=== PATIENT | female | born 1990 | race Caucasian/White ===

== ENCOUNTER 2020-01-16 13:59 | Inpatient (IN) | payer BC ==
[2020-01-16] VITALS (24 sets, daily range): BP systolic 117–168; BP diastolic 58–90; PULSE 68–114; TEMP 97.6–98.4
[~2020-01-16] VITALS: Ht 165.1 cm; Wt 88.2 kg
--- NOTE | 2020-01-16 14:05 | NUR ---
1405- Pt. ambulatory to the floor. Orientated to room and changed into gown. Pt. reports GFM, no blood and states she has been leaking since around 1100, when she thinks her water broke. 1409- EFM and TOCO on and tracing. SVE /-2 by Aditi Willett RN. Amniswab came back positive with clear fluid noted when checking patient. Vitals taken, assessment completed, consents reviewed and signed, IV started and fluids started. Plan for the day discussed, no questions at this time. Father/spouse notified to come up to unit, as pt. is staying. Call light within reach.
[2020-01-16] MEDS ORDERED: PRENATAL TABLET PO (14:23)
[2020-01-16 15:45] LABS: BASO # 0.1 (0.0-0.2); BASO % 0.3 % (0.0-2.0); EOS # 0.1 (0.0-0.7); EOS % 0.6 % (0-4.0); GRAN # 13.2 (1.4-6.5); HEMATOCRIT 36.2 % (37.0-47.0); LYMPH # 1.8 (1.2-3.4); LYMPH % 10.7 % (20.0-51.0); MEAN CELL VOLUME 92 fl (80.0-100.0); MEAN CORPUSCULAR HEMOGLOBIN 31 pg (27.0-31.0); MEAN CORPUSCULAR HGB CONC 33 g/dl (33.0-37.0); MONO # 1.4 (0.1-0.6); MONO % 8.2 % (1.7-9.3); PLATELET COUNT 252 K/mm3 (130-400); RED BLOOD COUNT 3.93 M/mm3 (4.10-5.30); REDCELL DISTRIBUTION WIDTH-CV 12.4 % (11.5-14.5)
--- NOTE | 2020-01-16 19:09 | NUR ---
1908- Pt reports pressure. SVE by this RN /0. Fore bag ruptured on exam. 1909- Spoke with Dr. Rodriguez for an update and enroute to hospital for pending delivery. 1919- Dr. Rodriguez at the bedside. Pt set up delivery. Pushing instructions reviewed. 1921- Pushing started. 1928- Vacuum applied per Dr. Rodriguez. 1929- Pop off. 1930- Vacuum reapplied per Dr. Rodriguez. 1933- Vacuum assist delivery of viable male . Cords clamped and cut. placed on mom's chest. Care of the given to nursery RN at the bedside. 1937- of placenta. Fundus firm and lochia WNL. Pitocin started at 333ml/hr per order and protocol.
[2020-01-17 00:01] VITALS: BP 92/61; PULSE 104; TEMP 98.6
[2020-01-17 04:00] VITALS: BP 98/65; PULSE 97; TEMP 98.8
[2020-01-17 07:30] VITALS: BP 114/70; PULSE 98; TEMP 98.4
[2020-01-17] MEDS ORDERED: MOTRIN 800800 MG/TAB PO (08:54)
[2020-01-17 12:00] VITALS: BP 99/67; PULSE 86; TEMP 99.4
[2020-01-17 16:32] VITALS: BP 105/57; PULSE 92; TEMP 98.5
[2020-01-17 20:12] VITALS: BP 104/62; PULSE 80; TEMP 97.8
[2020-01-18 07:45] VITALS: BP 102/69; PULSE 77; TEMP 97.7
[2020-01-18] MEDS ORDERED: MOTRIN 800800 MG/TAB PO (10:37)
== END 2020-01-18 11:15 | disposition home or self-care (01) | DRG 807 ==
LOC: LDRO 13:59 → LDR 14:05 → OB 22:47
PROVIDERS: ADMIT Obstetrics & Gynecology
PROC: 10D07Z6 Extraction of Products of Conception, Vacuum, Via Natural or Artificial Opening (ICD-10-PCS; principal; 2020-01-16)
PROC: 0KQM0ZZ Repair Perineum Muscle, Open Approach (ICD-10-PCS; 2020-01-16)
DX: O36.8330 Maternal care for abnormalities of the fetal heart rate or rhythm, third trimester, not applicable or unspecified (principal); Z37.0 Single live birth; O70.1 Second degree perineal laceration during delivery; Z3A.39 39 weeks gestation of pregnancy; Z23 Encounter for immunization
CPT/HCPCS: J2590; J2791; J7120

== ENCOUNTER 2022-01-26 12:19 | Outpatient (CLI) | payer OTHER ==
[~2022-01-26] VITALS: Ht 165.1 cm; Wt 85.0 kg
[~2022-01-26 12:19] MED LIST: MOTRIN 800800 MG/TAB PO; PRENATAL TABLET PO
[2022-01-26 12:25] VITALS: BP 115/74; PULSE 82; TEMP 98.3
[2022-01-26 13:00] VITALS: PULSE 78
--- NOTE | 2022-01-26 13:11 | NUR ---
1225 PATIENT HERE FOR COMPLAINTS OF LEAKING ALOT OF FLUID THIS MORNING AND BEING WET. EFM ON 140 GOOD ACCELERATIONS, BABY ACTIVE. NO CONTRACTIONS NOTED. AMNIOTRACE NEGATIVE. SVE /-3 AMNIOTRACAE NEXT TO CERVIX, HAD PATIENT COUGH NO FLUID NOTED AT THIS TIME. ASSESSMENT COMPLETED. DR ULRICH CALLED AND UPDATED ON ALL ABOVE INFORMATION. ORDERS TO MOMNITOR FDR HOUR, HAVE PATIENT WALK AROUND AND RESWAP ANY FLUID. 1240 PATIENT AND AMBULATE HALLS. DENIES NEEDS
[2022-01-26 13:44] VITALS: BP 113/59; PULSE 75
--- NOTE | 2022-01-26 13:45 | NUR ---
1340 PATIENT AMBULATE HALLS FOR 40 MIN, NO LEAKING OF FLUID NOTED AT THIS TIME. SVE UNCHANGED AMNIOTRACE NEGAIVE, NO FLUID NOTED WITH COUGH OR BEARING DOWN. DR ULRICH CALLED WITH ALL ABOVE INFORMATION. ORDERS TO DISMISS TO HOME. EDUCATION NOTED ON RETURN IF GUSH OF FLUID, ALL DISCHARGE INSTRUCTIONS GIVEN TO PATIENT AND HSBAND WITH VERBAL UNDERSTANDING. FHT 120 BABY VERY ACTIVE. PATIENT DENIES HAVING ANY CONTRACTIONS .
== END 2022-01-26 13:45 | disposition home or self-care (01) ==
LOC: LDRO 12:19
DX: Z34.93 Encounter for supervision of normal pregnancy, unspecified, third trimester (principal); Z3A.39 39 weeks gestation of pregnancy

== ENCOUNTER 2022-02-02 17:04 | Inpatient (IN) | payer OTHER ==
[~2022-02-02] VITALS: Ht 165.1 cm; Wt 85.6 kg
[2022-02-02] VITALS (8 sets, daily range): BP systolic 103–159; BP diastolic 61–92; PULSE 73–144; TEMP 98
--- NOTE | 2022-02-02 17:15 | NUR ---
Pt arrived on unit ambulatory with concerns for contractions since 1030 this morning worsening to 2-3 minutes after clinic visit and having her membranes swept. Pt denies any leaking of fluid or vaginal bleeding and reports normal movement. EFM and toco monitors started. Vital signs WNL. SVE by this RN 2-. Dr. Cooney notified. See physician notification for details.
--- NOTE | 2022-02-02 19:35 | NUR ---
PT OFF THE MONITORS TO AMBULATE HALLS.
--- NOTE | 2022-02-02 20:45 | NUR ---
DR. ULRICH ON UNIT, UPDATED ON SVE OF /-2 WITH CONTINUED BLOODY SHOW. PT MORE UNCOMFORTABLE WITH CONTRACTIONS. PER DR. ULRICH, ADMIT PT PER PROTOCOL, MAY HAVE EPIDURAL IF DESIRES.
[2022-02-02 21:16] LABS: HEMOGLOBIN 12.8 g/dl (12.5-16.0); MEAN CELL VOLUME 88 fl (80.0-100.0); MEAN CORPUSCULAR HEMOGLOBIN 31 pg (27-31); MEAN CORPUSCULAR HGB CONC 35 g/dl (33.0-37.0); MEAN PLATELET VOLUME 10.2 fl (7.4-10.4); PLATELET COUNT 314 K/mm3 (130-400); RED BLOOD COUNT 4.11 M/mm3 (4.10-5.30); REDCELL DISTRIBUTION WIDTH-CV 12.4 % (11.5-14.5)
[2022-02-02 21:30] LABS: HEMATOCRIT 36.2 % (37.0-47.0)
--- NOTE | 2022-02-02 21:30 | NUR ---
ROLES IN ROOM TO PERFORM AROM. FOLLOWING AROM, PT BECOMES MORE UNCOMFORTABLE, MOANING WITH CONTRACTIONS, PT STATES CONTRACTIONS ARE MORE INTENSE. THIS NURSE REMAINS IN ROOM TO PAYMENT PROCESSOR PT, ATTEMPTING TO HOLD US IN PLACE DUE TO DIFFICULTY TRACING FHTs DURING CONTRACTIONS.
[2022-02-02 21:38] LABS: BAND 8 % (0-10); LYMPHOCYTE 8 % (20.0-51.0); NEUTROPHILS 79 % (42.0-75.2); PLATELET ESTIMATE NORMAL (NORMAL)
--- NOTE | 2022-02-02 22:20 | NUR ---
2201- DR. ULRICH IN ROOM TO EVALUATE PT. PT PUSHING INVOLUNTARILY. 2203- ANTERIOR LIP. 2204- COMPLETE, PT PUSHING WITH DR. ULRICH IN ROOM. DIFFICULTY TRACING FHT's DURING CONTRACTIONS AND WITH PUSHING, THIS NURSE HOLD US IN PLACE, LATE DECELS AUDIBLE INTO THE 70'S. 2209- SPONTANEOUS VAGINAL DELIVERY OF VIABLE BABY BOY. BABY TO MOTHER'S CHEST, CORD CLAMPED BY DR. ULRICH, CUT BY FOB. BABY CARES ASSUMED BY Aditi HOWELL RN. PT'S IV OUT DURING DELIVERY. DR. ULRICH DECLINES IM PITOCIN AT THIS TIME BLEEDING IS WNL AND FUNDUS IS FIRM. WILL CONTINUE TO MONITOR. PER DR. ULRICH IF BLEEDING INCREASES MAY GIVE IM PITOCIN. 2213- SPONTANEOUS DELIVERY OF INTACT PLACENTA. LIDOCAINE GIVEN AT THE PERINEUM BY DR. ULRICH, 2ND DEGREE LACERATION REPAIRED. 2219- RECOVERY STARTED.
[2022-02-03 00:15] VITALS: BP 116/61; PULSE 115
--- NOTE | 2022-02-03 00:20 | NUR ---
PT UP TO BATHROOM FOLLOWING DELIVERY. ABLE TO VOID 600ML. ASSISTED WITH PERICARE, PERIPAD, ICE, AND MESH UNDERWEAR APPLIED. PT ABLE TO AMBULATE TO WITHOUT DIFFICULTY.
[2022-02-03 05:30] VITALS: BP 98/61; PULSE 87; TEMP 98.7
[2022-02-03] MEDS ORDERED: MOTRIN 800800 MG/TAB PO (07:01)
[2022-02-03 07:45] VITALS: BP 103/67; PULSE 93; TEMP 97.8
[2022-02-03 16:44] VITALS: BP 104/69; PULSE 93; TEMP 98
[2022-02-03 20:00] VITALS: BP 105/61; PULSE 81; TEMP 98.1
[2022-02-04 00:55] VITALS: BP 94/52; PULSE 80; TEMP 97.7
[2022-02-04 07:34] VITALS: BP 114/63; PULSE 84; TEMP 98
--- NOTE | 2022-02-04 09:45 | NUR ---
DISCHARGE INSTRUCTIONS PROVIDED. QUESTIONS INVITED AND ANSWERED. UNDERSTANDING VERBALIZED.
== END 2022-02-04 10:15 | disposition home or self-care (01) | DRG 807 ==
LOC: LDRO 17:04 → LDR 20:47 → OB 20:47
PROVIDERS: Obstetrics & Gynecology; ADMIT Obstetrics & Gynecology
PROC: 10E0XZZ Delivery of Products of Conception, External Approach (ICD-10-PCS; principal; 2022-02-03)
PROC: 0KQM0ZZ Repair Perineum Muscle, Open Approach (ICD-10-PCS; 2022-02-03)
PROC: 10907ZC Drainage of Amniotic Fluid, Therapeutic from Products of Conception, Via Natural or Artificial Opening (ICD-10-PCS; 2022-02-03)
DX: O48.0 Post-term pregnancy (principal); Z37.0 Single live birth; Z3A.40 40 weeks gestation of pregnancy; O70.1 Second degree perineal laceration during delivery
CPT/HCPCS: J2791; J7120